=== PATIENT | female | born 1965 | race Caucasian/White ===

== ENCOUNTER → 2016-04-24 | Outpatient (CLI) | payer BC | LOC: GMAL 11:24 | PROVIDERS: ATTEND Family Medicine | DX: Z00.00 Encounter for general adult medical examination without abnormal findings (principal) ==

== ENCOUNTER → 2016-08-08 | Outpatient (CLI) | payer BC | END | disposition home or self-care (01) | LOC: GMAL 10:39 | PROVIDERS: ATTEND Family Medicine | DX: D51.3 Other dietary vitamin B12 deficiency anemia (principal); N95.9 Unspecified menopausal and perimenopausal disorder; E55.9 Vitamin D deficiency, unspecified ==

== ENCOUNTER → 2017-10-11 | Outpatient (CLI) | payer BC ==
--- NOTE | 2017-10-11 08:53 | MRI ---
EXAM DESCRIPTION: Brain w/oContrast CLINICAL HISTORY: Other transient cerebral ischemic attacks and related syndromes, weakness right side wall COMPARISON: MR brain from April 03, 2010 TECHNIQUE: Non contrast MRI of the brain is performed according to our usual protocol including multiplanar multi sequence technique. FINDINGS: Sagittal T1 images show intact corpus callosum. Normal pituitary gland with normal T1 appearance of the susan and medulla and upper cervical cord. Normal signal intensity within the clivus and calvarium. Axial T2 fat sat images reveal preservation of intracranial vascular flow voids. Normal ellis matter and white matter T2 signal intensity. Normal ventricles with normal gyral and sulcal fold pattern. The globes appear intact and symmetrical. No abnormal fluid signal in the paranasal sinuses, tympanic cavities or mastoid air cells. Axial flair images show multifocal increased signal intensity in the central and subcortical white matter consistent with chronic microvascular ischemic changes, advanced for age. Diffusion weighted images show positive hyperintense focus in the susan, anteriorly to the left of midline consistent with a small lacunar infarct measuring 5 mm. Another tiny focus which is less intense is seen in the mid left lateral susan. Lacunar infarct in this area is likely related to hypertension. Clinical correlation is recommended. ADC mapping shows focal signal loss in this area consistent with true restriction. Axial T1 images show normal ellis-white matter differentiation. No high signal intensity hemorrhagic lesion of the brain parenchyma. No subdural hematoma. Axial susceptibility weighted images are negative for focal signal loss to suggest abnormal brain parenchymal calcification or hemosiderin deposition. Results were called to Dr. Fabian Pruitt at the time of image interpretation 8:50 AM on 10/11/2017. IMPRESSION: Small 5 mm focus of restriction in the susan consistent with acute or subacute lacunar infarct. Extensive chronic microvascular ischemic changes in the cerebral white matter bilaterally. Electronically signed by: Mahamed Martin MD 10/11/2017 8:51 AM CDT
== END ==
LOC: MRI 07:27
PROVIDERS: ATTEND Family Medicine
DX: G45.8 Other transient cerebral ischemic attacks and related syndromes (principal)

== ENCOUNTER → 2017-10-28 | Outpatient (CLI) | payer BC | LOC: GMAL 10:44 | PROVIDERS: ATTEND Family Medicine | DX: D51.3 Other dietary vitamin B12 deficiency anemia (principal); E55.9 Vitamin D deficiency, unspecified; E78.4 Other hyperlipidemia; E11.9 Type 2 diabetes mellitus without complications; I10 Essential (primary) hypertension ==

== ENCOUNTER 2017-11-06 14:17 | Emergency (ER) | payer BC ==
[2017-11-06] MEDS ORDERED: SODIUM CHLORIDE 0.9% (FLUSH) 10 ML SYG IV PRN (14:44)
[2017-11-06] MEDS ORDERED: MECLIZINE HCL 12.5 MG TAB PO ONE (14:45)
[2017-11-06] MEDS ORDERED: METOCLOPRAMIDE HCL INJ 10 MG/2 ML VIAL IV ONE (14:46)
[2017-11-06] MEDS ORDERED: SODIUM CHLORIDE 0.9% 1000ML 1,000 ML IVS ONE (14:46)
--- NOTE | 2017-11-06 14:50 | ED.PDOC ---
History of Present Illness - General Chief Complaint: Neuro Symptoms/Deficits Stated Complaint: Dizziness Time Seen by Provider: 11/06/17 14:30 Source: patient Exam Limitations: no limitations - History of Present Illness Initial Comments: PT PRESENTS TO THE ED WITH COMPLAINT OF SUDDEN ONSET OF VERTIGO ASSOCIATED WITH NAUSEA AND VOMITING THAT BEGAN AT 3 AM THIS MORNING. PT HAS RECENT HISTORY OF A MILD CVA THAT OCCURRED LAST MONTH. PT DENIES ANY CURRENT PARESTHESIAS, OR FOCAL WEAKNESS. Severity: moderate Improving Factors: immobilization Worsening Factors: movement Associated Symptoms: nausea/vomiting Allergies/Adverse Reactions: Allergies Codeine Allergy (Verified 03/05/14 00:25) Home Medications: Ambulatory Orders Amlodipine Besylate 5 mg PO DAILY 11/06/17 Aspirin 325 mg PO DAILY 11/06/17 Atorvastatin Calcium 40 mg PO DAILY 11/06/17 Cholecalciferol [Vitamin D-3] 4,000 unit PO DAILY 11/06/17 Clopidogrel Bisulfate [Plavix] 75 mg PO DAILY 11/06/17 Escitalopram [Lexapro] 10 mg PO DAILY 11/06/17 Lisinopril [Lisinopril] 40 mg PO DAILY 11/06/17 Meclizine HCl [Meclizine] 50 mg PO Q6HR PRN #36 tablet 11/06/17 Metoclopramide HCl [Reglan] 10 mg PO Q6HR PRN #20 tab 11/06/17 Pioglitazone HCl 45 mg PO DAILY 11/06/17 Sitagliptin Phosphate [Januvia] 100 mg PO DAILY 11/06/17 Review of Systems - Review of Systems Constitutional: Denies: chills, fever EENTM: Denies: ear pain, nose congestion Respiratory: Denies: cough, short of breath Cardiology: Denies: chest pain, palpitations Gastrointestinal/Abdominal: States: see HPI, nausea, vomiting. Denies: abdominal pain, diarrhea Genitourinary: Denies: dysuria, frequency Musculoskeletal: Denies: joint pain, joint swelling Skin: Denies: dryness, lesions Neurological: States: headache, pre-existing deficit Endocrine: States: no symptoms reported Hematologic/Lymphatic: States: no symptoms reported Past Medical History (General) - Patient Medical History Hx Stroke: Yes - CVA 2018 Hx Cardiac Disorders: Yes - hypercholesterolemia Hx Congestive Heart Failure: No Hx Hypertension: Yes Hx Diabetes: Yes Hx Renal Disease: Yes Hx MRSA: No Surgical History: Hysterectomy - Vaccination History Hx Tetanus, Diphtheria Vaccination: No Hx Influenza Vaccination: Yes - 2017 Hx Pneumococcal Vaccination: No - Social History Hx Tobacco Use: Yes Hx Alcohol Use: No - Female History Patient : No Family Medical History - Family History Mother Family History: No Known Living Status: Still Living Physical Exam - Physical Exam General Appearance: Alert, Well Developed, Well Groomed, Well Hydrated, Other - APPEARS UNCOMFORTABLE Eye Exam: bilateral normal, bilateral other - HORIZONTAL NYSTAGMUS ENT Exam: normal ENT inspection, hearing grossly normal, TMs normal, pharynx normal Neck: supple, normal inspection Respiratory: lungs clear, normal breath sounds, no respiratory distress Cardiovascular/Chest: regular rate, rhythm, no murmur Gastrointestinal/Abdominal: non tender, soft Extremities Exam: non-tender, normal range of motion 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 REGLAN AND IV NS INFUSING 11/06/17 17:05 PT REPORTS SIGNIFICANT IMPROVEMENT AFTER COMPLETION OF REGLAN AND FLUIDS. ABLE TO TOLERATE PO IN THE ED. LABS AND DIAGNOSTICS DISCUSSED. - Results/Orders Results/Orders: 11/06/17 14:44 Sodium Chloride 0.9% (Flush) [Saline Flush Syringe] 10 ml IV PRN PRN 11/06/17 14:45 IV Care:Saline Lock per Protoc QSHIFT Telemetry .ONCE EKG STAT Pulse Oximetry Assessment DAILY 11/06/17 15:45 URINE CULTURE W/COLONY COUNT Stat 11/07/17 09:00 Pulse Ox Daily 11/07/17 14:45 EKG STAT Laboratory Results - last 24 hr 11/06/17 11/06/17 11/06/17 14:35 14:35 14:35 WBC 8.1 RBC 4.79 Hgb 13.8 Hct 42.3 MCV 88.3 MCH 28.8 MCHC 32.6 L RDW 13.5 Plt Count 218 MPV 8.9 Absolute Neuts (auto) 5.50 Absolute Lymphs (auto) 1.70 Absolute Monos (auto) 0.60 Absolute Eos (auto) 0.20 Absolute Basos (auto) 0.00 Neutrophils % 68.4 Lymphocytes % 21.3 Monocytes % 7.5 Eosinophils % 2.2 Basophils % 0.6 PT 9.7 INR 0.97 PTT (SP) 23.4 Sodium 140 Potassium 4.1 Chloride 105 Carbon Dioxide 27 Anion Gap 12.1 BUN 14 Creatinine 0.67 BUN/Creatinine Ratio 20.9 H POC Glucose Random Glucose 131 H Serum Osmolality 281.7 Calcium 9.8 Total Bilirubin 0.6 AST 15 ALT 14 Alkaline Phosphatase 77 Creatine Kinase 34 CK-MB (CK-2) 0.8 CK-MB (CK-2) % Not Reportable Troponin I < 0.02 Serum Total Protein 6.9 Albumin 4.0 Globulin 2.9 Albumin/Globulin Ratio 1.4 Urine Color Urine Appearance Urine pH Ur Specific Olcott Urine Protein Urine Glucose (UA) Urine Ketones Urine Blood Urine Nitrite Urine Bilirubin Urine Urobilinogen Ur Leukocyte Esterase Urine RBC Urine WBC Ur Epithelial Cells Amorphous Sediment Urine Bacteria 11/06/17 11/06/17 14:35 15:45 WBC RBC Hgb Hct MCV MCH MCHC RDW Plt Count MPV Absolute Neuts (auto) Absolute Lymphs (auto) Absolute Monos (auto) Absolute Eos (auto) Absolute Basos (auto) Neutrophils % Lymphocytes % Monocytes % Eosinophils % Basophils % PT INR PTT (SP) Sodium Potassium Chloride Carbon Dioxide Anion Gap BUN Creatinine BUN/Creatinine Ratio POC Glucose 120 H Random Glucose Serum Osmolality Calcium Total Bilirubin AST ALT Alkaline Phosphatase Creatine Kinase CK-MB (CK-2) CK-MB (CK-2) % Troponin I Serum Total Protein Albumin Globulin Albumin/Globulin Ratio Urine Color Yellow Urine Appearance Clear Urine pH 6.5 Ur Specific Olcott 1.025 Urine Protein Negative Urine Glucose (UA) Negative Urine Ketones Negative Urine Blood Negative Urine Nitrite Negative Urine Bilirubin Negative Urine Urobilinogen 0.2 Ur Leukocyte Esterase Small H Urine RBC 0-1 Urine WBC 1-3 Ur Epithelial Cells 1-3 Amorphous Sediment 2+ Urine Bacteria 1+ - EKG/XRAY/CT EKG: Sinus - @84BPM, NL INTERVALS, NL AXIS, no ST T wave changes - NO OLD EKG FOR COMPARISON. XRAY: chest - NAD Departure - Departure Clinical Impression: Benign positional vertigo, Nausea & vomiting Time of Disposition: 17:14 Disposition: Discharge to Home or Self Care Condition: Good Departure Forms: ED Discharge - Pt. Copy, Patient Portal Self Enrollment Instructions: Vertigo (a Type of Dizziness) (DC) Referrals: Fabian Pruitt III, MD [Primary Care Provider] - 1-2 Weeks Prescriptions: Meclizine HCl [Meclizine] 50 mg PO Q6HR PRN #36 tablet PRN Reason: Dizziness Metoclopramide HCl [Reglan] 10 mg PO Q6HR PRN #20 tab PRN Reason: Nausea/Vomiting Home Medications: Ambulatory Orders Amlodipine Besylate 5 mg PO DAILY 11/06/17 Aspirin 325 mg PO DAILY 11/06/17 Atorvastatin Calcium 40 mg PO DAILY 11/06/17 Cholecalciferol [Vitamin D-3] 4,000 unit PO DAILY 11/06/17 Clopidogrel Bisulfate [Plavix] 75 mg PO DAILY 11/06/17 Escitalopram [Lexapro] 10 mg PO DAILY 11/06/17 Lisinopril [Lisinopril] 40 mg PO DAILY 11/06/17 Meclizine HCl [Meclizine] 50 mg PO Q6HR PRN #36 tablet 11/06/17 Metoclopramide HCl [Reglan] 10 mg PO Q6HR PRN #20 tab 11/06/17 Pioglitazone HCl 45 mg PO DAILY 11/06/17 Sitagliptin Phosphate [Januvia] 100 mg PO DAILY 11/06/17
--- NOTE | 2017-11-06 15:21 | RAD ---
EXAM DESCRIPTION: Chest,1 View CLINICAL HISTORY: vertigo COMPARISON: 26 May 2007 TECHNIQUE: AP portable chest FINDINGS: The lungs are clear. There is no infiltrate or effusion. The heart is normal size. IMPRESSION: Normal portable chest Electronically signed by: Fabian Herron MD 11/06/2017 3:19 PM CDT
--- NOTE | 2017-11-06 15:25 | CT ---
EXAM DESCRIPTION: Head CLINICAL HISTORY: vertigo COMPARISON: Cerebral magnetic resonance imaging dated 11 October 2017 TECHNIQUE: Non contrast cranial CT.This exam was performed according to our departmental dose-optimization program, which includes automated exposure control, adjustment of the mA and/or kV according to patient size and/or use of iterative reconstruction technique. FINDINGS: Portions of paranasal sinuses and the orbits as imaged are normal. Mastoid sinus air cells are clear. No mass lesions or mass effect are observed. The ventricles and cisternal spaces are within range of normal. A small lacunar infarct is observed in the right caudate head unchanged from the prior magnetic resonance imaging examination. No acute abnormality is seen. No intracranial hemorrhage is noted. The internal auditory canals are symmetric. IMPRESSION: Exam demonstrates evidence of prior lacunar infarction in the region of the right caudate head. Exam is otherwise unremarkable. Electronically signed by: Fabian Herron MD 11/06/2017 3:24 PM CDT
[2017-11-06 18:29] VITALS: BP 151/78; TEMP 97.8; O2SAT 94
== END 2017-11-06 16:30 | disposition home or self-care (01) ==
LOC: ER 14:17
DX: H81.10 Benign paroxysmal vertigo, unspecified ear (principal); E11.22 Type 2 diabetes mellitus with diabetic chronic kidney disease; I12.9 Hypertensive chronic kidney disease with stage 1 through stage 4 chronic kidney disease, or unspecified chronic kidney disease; N18.9 Chronic kidney disease, unspecified; E78.00 Pure hypercholesterolemia, unspecified; Z86.73 Personal history of transient ischemic attack (TIA), and cerebral infarction without residual deficits; Z87.891 Personal history of nicotine dependence; Z88.5 Allergy status to narcotic agent; Z79.899 Other long term (current) drug therapy; Z79.82 Long term (current) use of aspirin
CPT/HCPCS: 36415; 70450; 71045; 80053; 81001; 82550; 82553; 82948; 84484; 85025; 85610; 85730; 87086; 93005; J2765; J7030

== ENCOUNTER → 2019-04-09 | Outpatient (CLI) | payer BC | LOC: GMAL 10:45 | PROVIDERS: ATTEND Family Medicine | DX: D51.3 Other dietary vitamin B12 deficiency anemia (principal); I10 Essential (primary) hypertension; E55.9 Vitamin D deficiency, unspecified; E11.9 Type 2 diabetes mellitus without complications; E78.49 Other hyperlipidemia; R53.82 Chronic fatigue, unspecified ==

== ENCOUNTER 2019-10-17 20:32 | Emergency (ER) | payer BC ==
[2019-10-17 20:54] VITALS: O2SAT 97
--- NOTE | 2019-10-17 21:28 | ED.PDOC ---
History of Present Illness - General Chief Complaint: Headache Stated Complaint: fever, headache, bodyaches, exposed to COVID Time Seen by Provider: 10/17/19 20:36 Source: patient, RN notes reviewed, Vital Signs reviewed Exam Limitations: no limitations - History of Present Illness Initial Comments: This is a 54-year-old female presenting to the emergency department for headach e, fevers, body aches, malaise onset yesterday. She was exposed to someone who tested positive for COVID 9 days ago. She states she was in an enclosed room with this person for approximately 8 hours. This person was apparently asymptomatic at that time, but tested positive the next day. She denies any cough, sore throat, anosmia, or dysgeusia. She denies any weakness/numbness/tingling, or neck stiffness. She does have a history of hypertension and diabetes. No shortness of breath. She took 1500 mg of Tylenol 2 hours ago due to body aches and fever. She is afebrile in the emergency depar tment. Allergies/Adverse Reactions: Allergies Codeine Allergy (Verified 03/05/14 00:25) Home Medications: Ambulatory Orders Amlodipine Besylate 5 mg PO DAILY 11/06/17 Aspirin 325 mg PO DAILY 11/06/17 Atorvastatin Calcium 40 mg PO DAILY 11/06/17 Cholecalciferol [Vitamin D-3] 4,000 unit PO DAILY 11/06/17 Clopidogrel Bisulfate [Plavix] 75 mg PO DAILY 11/06/17 Escitalopram [Lexapro] 10 mg PO DAILY 11/06/17 Lisinopril 40 mg PO DAILY 11/06/17 Pioglitazone HCl 45 mg PO DAILY 11/06/17 Sitagliptin Phosphate [Januvia] 100 mg PO DAILY 11/06/17 Albuterol Sulfate [Albuterol Sulfate Hfa] 2 - 4 puff INH Q4H PRN #1 inh 10/17/19 Famotidine 20 mg PO DAILY 10/17/19 Glimepiride 4 mg PO DAILY 10/17/19 Ibuprofen [Motrin] 400 mg PO Q6H PRN #20 tab 10/17/19 Ondansetron Odt [Zofran ODT] 4 - 8 mg PO Q6H PRN #12 tab 10/17/19 Tramadol HCl 50 - 100 mg PO Q6H PRN #20 tab 10/17/19 Review of Systems - Review of Systems Constitutional: States: chills, fever, malaise EENTM: Denies: ear pain, nose congestion, throat pain, mouth pain Respiratory: Denies: cough, short of breath, wheezing Cardiology: Denies: chest pain, edema Gastrointestinal/Abdominal: Denies: abdominal pain, diarrhea, nausea, vomiting Genitourinary: Denies: dysuria, frequency, hematuria Musculoskeletal: States: muscle pain. Denies: back pain, joint pain, neck pain Skin: Denies: lesions, rash Neurological: States: headache. Denies: numbness, paresthesia, tingling, tremors Endocrine: States: no symptoms reported Hematologic/Lymphatic: States: no symptoms reported Past Medical History (General) - Patient Medical History Hx Seizures: No Hx Stroke: Yes Hx Dementia: No Hx Asthma: No Hx of COPD: No Hx Cardiac Disorders: No Hx Congestive Heart Failure: No Hx Pacemaker: No Hx Hypertension: Yes Hx Thyroid Disease: No Hx Diabetes: Yes Hx Gastroesophageal Reflux: Yes Hx Renal Disease: No Hx Cancer: No Hx of HIV: No Hx Hepatitis C: No Hx MRSA: No Surgical History: cholecystectomy, tonsillectomy, Hysterectomy, other - Vaccination History Hx Tetanus, Diphtheria Vaccination: No Hx Influenza Vaccination: Yes Hx Pneumococcal Vaccination: No - Social History Hx Tobacco Use: Yes Hx Chewing Tobacco Use: No Hx Alcohol Use: No Hx Substance Use: No Hx Substance Use Treatment: No Hx Depression: No Feels Threatened In Home Enviroment: No Feels Threatened In a Relationship: No Hx Physical Abuse: No Hx Emotional Abuse: No Hx Suspected Abuse: No - Female History Patient is a Female of Child Bearing Age (10 -59 yrs old): Yes Patient : No - Triage Comment ED Triage Comment: The patient was alert and oriented times 4 and complained of feeling weak and having a fever and headache. She had been exposed to a COVID patient 9 days prior and now was feeling sick. She had no noted shortness of breath and no noted chest pain. She did not complain of sore throat or cough. Family Medical History - Family History Mother Family History: No Known Living Status: Still Living Physical Exam - Physical Exam General Appearance: Alert, Comfortable Ears, Nose, Throat: hearing grossly normal, normal ENT inspection Neck: non-tender, full range of motion, supple, other - No nuchal rigidity Respiratory: chest non-tender, lungs clear, normal breath sounds, no respiratory distress Cardiovascular/Chest: regular rate, rhythm, no edema, no gallop, no JVD Gastrointestinal/Abdominal: non tender, soft Back Exam: normal inspection, no CVA tenderness Extremity: normal range of motion, non-tender, normal inspection 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 Patient presenting with headaches, body aches, intermittent fevers. Strong suspicion for COVID-19 at this time. Her chest x-ray is clear, patient is afebrile, normal O2 sats, no respiratory distress. I explained that I have high suspicion for COVID-19 at this time and that she will need to quarantine for 14 days or until symptoms are completely resolved for more than 24 hours according to CDC recommendations. Strict warnings given to return the emergency room for intractable vomiting, shortness of breath, changes in mental status, or any other concerns. Patient elected to be discharged prior to COVID-19 test results. DDX: COVID-19 versus other viral URI, low suspicion for meningitis/encephalitis at this time. MDM: Patient had prolonged close exposure with confirmed COVID-19 case 9 days ago. Presenting with headache, fevers, malaise. No shortness of breath, no anosmia, no dysgeusia at this time. I have high suspicion for COVID-19 on this patient. Sats are normal, no respiratory distress. Chest x-ray clear, lungs clear on ex am. No indication for admission or extensive work-up at this time. Patient does have some risk factors including hypertension and diabetes. I recommended quarantine at home. Nasal swab is pending at this time, patient elected to be discharged prior to results. Will call back with results. Patient will need to quarantine for 14 days or until cleared according to her employers return to work policy. Strict warnings given to return emergency room for shortness of breath, worsening headache, changes mental status, intractable vomiting, or other concerns. Gokul Blackman DO [id number] - Results/Orders Results/Orders: Chest x-ray reviewed personally by me at 9:28 PM. No acute process, no infiltrates, no pneumothorax CHEST 1 VIEW on 10/17/2019 CLINICAL INDICATION: Fever COMPARISON: 11/06/2017 FINDINGS: The lungs are clear. Mild vascular calcification is noted in the aorta. Cardiac, hilar and mediastinal contours are within normal limits. Pulmonary vascularity is within normal limits. No bony abnormality is noted. IMPRESSION: No active disease. Electronically signed by: Ponce Su 10/17/2019 9:28 PM - EKG/XRAY/CT CT Ordered: No CT Interpretation Call Back: No Departure - Departure Clinical Impression: Acute febrile illness, Suspected COVID-19 virus infection Headache Qualifiers: Headache type: unspecified Headache chronicity pattern: acute headache Intractability: not intractable Qualified Code(s): R51 - Headache Time of Disposition: 21:40 Disposition: Discharge to Home or Self Care Condition: Good Departure Forms: ED Discharge - Pt. Copy, Patient Portal Self Enrollment, Work Release Form Instructions: DI for Headache, Coronavirus Disease 2019 (COVID-19) Diet: resume usual diet Activity: increase activity as tolerated Referrals: Fabian Pruitt III, MD [Primary Care Provider] - 1-2 Weeks Prescriptions: Albuterol Sulfate [Albuterol Sulfate Hfa] 2 - 4 puff INH Q4H PRN #1 inh PRN Reason: wheezing Ibuprofen [Motrin] 400 mg PO Q6H PRN #20 tab PRN Reason: Mild To Moderate Pain Ondansetron Odt [Zofran ODT] 4 - 8 mg PO Q6H PRN #12 tab PRN Reason: Nausea Tramadol HCl 50 - 100 mg PO Q6H PRN #20 tab PRN Reason: Moderate To Severe Pain Home Medications: Ambulatory Orders Amlodipine Besylate 5 mg PO DAILY 11/06/17 Aspirin 325 mg PO DAILY 11/06/17 Atorvastatin Calcium 40 mg PO DAILY 11/06/17 Cholecalciferol [Vitamin D-3] 4,000 unit PO DAILY 11/06/17 Clopidogrel Bisulfate [Plavix] 75 mg PO DAILY 11/06/17 Escitalopram [Lexapro] 10 mg PO DAILY 11/06/17 Lisinopril 40 mg PO DAILY 11/06/17 Pioglitazone HCl 45 mg PO DAILY 11/06/17 Sitagliptin Phosphate [Januvia] 100 mg PO DAILY 11/06/17 Albuterol Sulfate [Albuterol Sulfate Hfa] 2 - 4 puff INH Q4H PRN #1 inh 10/17/19 Famotidine 20 mg PO DAILY 10/17/19 Glimepiride 4 mg PO DAILY 10/17/19 Ibuprofen [Motrin] 400 mg PO Q6H PRN #20 tab 10/17/19 Ondansetron Odt [Zofran ODT] 4 - 8 mg PO Q6H PRN #12 tab 10/17/19 Tramadol HCl 50 - 100 mg PO Q6H PRN #20 tab 10/17/19
[2019-10-17 21:49] VITALS: BP 131/84; TEMP 97.7
== END 2019-10-17 21:49 | disposition home or self-care (01) ==
LOC: ER 20:32
DX: R50.9 Fever, unspecified (principal); R51 Headache; I10 Essential (primary) hypertension; E11.9 Type 2 diabetes mellitus without complications; F17.200 Nicotine dependence, unspecified, uncomplicated; Z86.73 Personal history of transient ischemic attack (TIA), and cerebral infarction without residual deficits; Z79.82 Long term (current) use of aspirin; Z79.02 Long term (current) use of antithrombotics/antiplatelets; Z79.899 Other long term (current) drug therapy; Z20.828 Contact with and (suspected) exposure to other viral communicable diseases